=== PATIENT | female | born 1955 | race Caucasian/White ===

== ENCOUNTER 2019-11-06 07:38 | Day surgery (SDC) | payer OTHER ==
[~2019-11-06] VITALS: Ht 165.1 cm; Wt 113.4 kg
[~2019-11-06 07:38] MED LIST: CVS DAILY GUM200 MCG PO; LIPITOR 20 MG T20 M1 PO; MEMANTINE HCL E28 MG PO; OMEPRAZOLE40 MG PO; PAXIL40 MG PO; RIVASTIGMINE4.5 MG PO; VENTOLIN HFA 1818 GM INH; VITAMIN B-122500 MCG PO
[2019-11-06 12:38] VITALS: BP 145/89
--- NOTE | 2019-11-10 06:20 | O ---
[facility] Nikita Vallejo [facility] [place] [address] OPERATIVE REPORT Name: ULISES VEGA Room #: DEP [facility].#: [id number] Admission: 11/06/19 Attend Phys: Misael Heller MD Discharge: 11/06/19 Date of : 55 Report #: [id number] THIS REPORT FOR: cc: SHILA BROWN MD FAM - Family physician unknown Misael Heller MD ~ CC: SHILA Baer [facility] unknown Misael Heller DATE OF SERVICE: 11/06/2019 PREOPERATIVE DIAGNOSIS: Tumor of right lower lid lateral canthus and cheek. POSTOPERATIVE DIAGNOSIS: Tumor of right lower lid lateral canthus and cheek. PROCEDURES: Excision of tumor of right lower lid lateral canthus and cheek with vascularized tarsoconjunctival flap from right upper lid to right lower lid, full-thickness skin graft from left upper lid to right lower lid, right lateral canthopexy with canthoplasty. SURGEON: Misael Heller MD PUBLIC ADDRESS SERVICER: None. ANESTHESIA: General. COMPLICATIONS: None. INDICATIONS FOR SURGERY: This pleasant 64-year-old woman has a nodular ulcerative lesion in her central and lateral right lower lid that extends out through the lateral canthus into the infratemporal fossa. The lesion appears to be a basal cell carcinoma. She presents today for excision of this lesion with frozen sections and subsequent reconstruction of that defect. Informed consent was obtained to include but not limited to the potential risk for loss of vision, bleeding, infection, failure to improve the problem, the potential need for further surgery or treatment. DESCRIPTION OF PROCEDURE: The patient was taken to the operating room, where general anesthesia was administered. The right lower lid, the right lateral canthus, the right infratemporal fossa, the right cheek, the right upper lid and the left upper lid were anesthetized with Xylocaine with epinephrine mixed with Marcaine and Wydase. The patient was subsequently prepped and draped in the usual sterile fashion. A fine tip skin marking pen was then utilized to outline [address] [address] OPERATIVE REPORT Name: ULISES VEGA Room #: DEP [facility] M.R.#: [id number] Admission: 11/06/19 Attend Phys: Misael Heller MD Discharge: 11/06/19 Date of : 55 Report #: [id number] the lesion including approximately 1.5-2 mm of normal appearing tissue around its margin. The incisions were then made vertically across the eyelid margin. The entire lateral canthus was taken out through the lateral most portion of the upper lid into the infratemporal fossa. The specimen was oriented on a drawing for the waiting pathologist. She snap froze the specimen and found that she felt that our margins medially, laterally and inferiorly were all clear. Attention was then turned to repair of the ensuing defect. The right upper lid was then everted and an incision made 3.5 mm above the matured lashes through the tarsal plate. A vascularized tarsoconjunctival flap was then elevated superiorly and rotated into the lower lid bed. The flap was thinned down to conjunctiva removing all of Graham's muscle off of the conjunctival surface. A periosteal flap was then developed laterally to accomplish a lateral canthopexy. The flap was rotated into position where it would meet the vascularized tarsoconjunctival flap to drawn up against the globe. As the lateral flap was advanced and canthoplasty completed, the adhesion between those two flaps were secured with interrupted 6-0 Vicryl sutures. The medial most portion of the vascularized tarsoconjunctival flap was secured to the lateral portion of the remaining tarsal plate with interrupted 6-0 Vicryl sutures. The redundant anterior lamella of the lateral upper lid was then outlined to remove sufficient tissue to correct the anterior lamellar defect in the lateral right lower lid. The incisions were then made with a Vamshi scissor and a full-thickness skin graft ____ utilizing thin section techniques. The donor site was closed with interrupted 6-0 chromic sutures and 6-0 plain gut sutures. The full thickness skin graft was then defatted and secured into its bed in the right lower lid lateral canthus and cheek with cardinal bites of 7-0 Vicryl sutures and then 6-0 plain gut sutures. The lateral left upper lid incision was then dressed with erythromycin ointment. Erythromycin ointment was then placed over the reconstructed right lower lid. Several layers of Telfa pad was placed over the full-thickness skin graft prior to placing 2 eye pads, which were held in place with silk tape and Mastisol. The patient was subsequently transported to the recovery area, having tolerated the procedures well with no anesthetic or operative complications being noted. <ELECTRONICALLY SIGNED> By: Misael Heller MD 11/10/19 0620 1104 1202 Misael Heller MD /nt
--- NOTE | 2019-11-11 12:06 | PATH ---
[facility] [address] [place] [address] PATHOLOGY RPT PROCEDURE Name: ULISES VEGA Room #: DEP [facility]#: [id number] Admission: 11/06/19 Date of : 55 Discharge: 11/06/19 Report #: [id number] Path Case #: [id number] [facility] Accession Number: [id number] . 01 Material submitted: . lid - RIGHT LOWER LID LESION - FS. Modifiers: right, lower . 02 Frozen section diagnosis: . FROZEN SECTION DIAGNOSIS (Valeri Laboy MD) . Skin, right lower lid lesion, excision: - Negative for invasive carcinoma at lateral, inferior and medial skin margins. - Carcinoma is at deep/conjunctival margin (black ink) focally. . These findings are discussed with Dr. Misael Heller in OR6 at [facility] and a written report is placed in the patient's chart. . Frozen section performed at [facility], [address] , [place] [address]. . . GROSS DESCRIPTION A. Received fresh from the OR labeled with the patient's name, and "right lower lid lesion", consists of an almost rectangular specimen measuring 1.5 cm from lateral to medial side, 0.6 cm from superior to inferior, and about 0.3 cm in thickness. The specimen is oriented by Dr. Heller as lateral, medial and inferior. It is inked as follows; the medial border and the deep margin are inked black, the inferior border is inked blue, and the lateral border is inked green. At this point, the specimen is sectioned into two pieces and submitted for frozen section in its entirety as FSA1, this is subsequently submitted for permanent sections as A1. (IUV:josefina; 11/06/2019) IZV/QMS . 02 Diagnosis: Skin "right lower eyelid lesion", biopsy: - BASAL CELL CARCINOMA; present at deep/conjunctival margin of resection. All other margins negative. (MLK:lovely; 11/10/2019) [facility] 11/11/2019 1106 Local . 02 Electronically signed: . Mario Metzger MD, Pathologist NPI- [id number] . [address] [place] [address] PATHOLOGY RPT PROCEDURE Name: ULISES VEGA Room #: DEP [facility] Darling#: [id number] Admission: 11/06/19 Date of : 55 Discharge: 11/06/19 Report #: [id number] Path Case #: [id number] Gross description: . PLEASE SEE GROSS DESCRIPTION UNDER FROZEN SECTION. /QMS 11/06/2019 1445 Local . 02 Pathologist provided ICD-10: C44.1122 . 02 CPT . 193317, [id number] Specimen Comment: A courtesy copy of this report has been sent to [phone] Specimen Comment: [phone] Specimen Comment: Report sent to / DR BROWN Performed at: [address], [place] [id number] MD Federico Chapa MD Phone: [phone] Performed at: [address] [id number] MD Valeri Laboy MD Phone: [phone]
== END 2019-11-06 12:25 | disposition home or self-care (01) ==
LOC: OR 07:38 → TBA 07:40 → OR 10:03
PROVIDERS: ATTEND Ophthalmology
DX: C44.1122 Basal cell carcinoma of skin of right lower eyelid, including canthus (principal); E78.00 Pure hypercholesterolemia, unspecified; F32.9 Major depressive disorder, single episode, unspecified; F41.9 Anxiety disorder, unspecified; F03.90 Unspecified dementia, unspecified severity, without behavioral disturbance, psychotic disturbance, mood disturbance, and anxiety; F17.210 Nicotine dependence, cigarettes, uncomplicated; K21.9 Gastro-esophageal reflux disease without esophagitis; Z98.41 Cataract extraction status, right eye; Z98.42 Cataract extraction status, left eye; Z98.51 Tubal ligation status; Z98.890 Other specified postprocedural states; Z79.899 Other long term (current) drug therapy
CPT/HCPCS: 50010; 50101; 50386; 50398; 50445; 51636; 56528; 56531; 62110; 62850; 64037; 70005

== ENCOUNTER 2020-01-01 06:55 | Day surgery (SDC) | payer OTHER ==
[~2020-01-01] VITALS: Ht 165.1 cm; Wt 113.4 kg
[2020-01-01 08:43] VITALS: BP 153/94
--- NOTE | 2020-01-05 06:19 | O ---
[facility] [place] [address] OPERATIVE REPORT Name: ULISES VEGA Room #: DEP [facility].#: [id number] Admission: 01/01/20 Attend Phys: Misael Heller MD Discharge: 01/01/20 Date of : 55 Report #: [id number] THIS REPORT FOR: cc: SHILA BROWN MD FAM - Family physician unknown Misael Heller MD ~ CC: SHILA Brown MD [facility] unknown Dipesh Heller DATE OF SERVICE: 01/01/2020 PREOPERATIVE DIAGNOSIS: Basal cell carcinoma, right lower lid. POSTOPERATIVE DIAGNOSIS: Basal cell carcinoma, right lower lid. PROCEDURE: Second stage Chao reconstruction, right eye. SURGEON: Misael Heller MD. MUSEUM PREPARATOR: None. ANESTHESIA: MAC. COMPLICATIONS: None. INDICATIONS FOR SURGERY: This pleasant 64-year-old woman underwent resection of basal cell carcinoma of her right lower lid on 11/06/2019 of this year. She presents today for a second stage Chao reconstruction of that lid. Informed consent was obtained to include but not limited to the potential risk for loss of vision, bleeding, infection, failure to improve the problem, and the potential need for further surgery or treatment. DESCRIPTION OF PROCEDURE: The patient was taken to the operating room where 2% Xylocaine with epinephrine mixed with equal parts of 0.75% Marcaine with Wydase was administered transcutaneously and transconjunctivally to the right lower lid, the right lateral canthus and the right upper lid. The patient was subsequently prepped and draped in the usual sterile fashion. A groove director was then placed behind the pedicle flap from the upper lid into the lower lid. The pedicle was then with a high-temp cautery. Hemostasis was achieved with a high-point cautery. The right upper lid was then everted and the donor site was smoothed with a Vmashi scissor and drawn down to a point where it was even with the [facility] [address] [place] [address] OPERATIVE REPORT Name: ULISES VEGA Room #: DEP [facility].#: [id number] Admission: 01/01/20 Attend Phys: Misael Heller MD Discharge: 01/01/20 Date of : 55 Report #: [id number] tarsoconjunctival surface. The right lower lid was then everted in the lid margin. The area was smoothed with a Vamshi scissor as well with the final closure being accomplished, draping conjunctiva over the lid margin to leave it smooth. The wounds were then cleaned and dressed with erythromycin ophthalmic ointment. The patient subsequently transported to the recovery area having tolerated the procedures well with no anesthetic or operative complications being noted. <ELECTRONICALLY SIGNED> By: Misael Heller MD 01/05/20 0619 0947 1015 Misael Heller MD /nt
== END 2020-01-01 10:35 | disposition home or self-care (01) ==
LOC: OR 06:55 → TBA 07:03 → OR 10:19
PROVIDERS: ATTEND Ophthalmology
DX: C44.1122 Basal cell carcinoma of skin of right lower eyelid, including canthus (principal); E78.00 Pure hypercholesterolemia, unspecified; K21.9 Gastro-esophageal reflux disease without esophagitis; F03.90 Unspecified dementia, unspecified severity, without behavioral disturbance, psychotic disturbance, mood disturbance, and anxiety; F17.210 Nicotine dependence, cigarettes, uncomplicated; J45.909 Unspecified asthma, uncomplicated; F32.9 Major depressive disorder, single episode, unspecified; F41.9 Anxiety disorder, unspecified; G47.30 Sleep apnea, unspecified; Z98.890 Other specified postprocedural states; Z79.899 Other long term (current) drug therapy; Z98.51 Tubal ligation status; Z98.41 Cataract extraction status, right eye; Z98.42 Cataract extraction status, left eye
CPT/HCPCS: 50010; 50101; 50386; 50398; 62110; 62850; 70005